=== PATIENT | male | born 1980 | race Caucasian/White ===

== ENCOUNTER → 2018-08-07 | Outpatient (CLI) | payer OTHER ==
[~2018-08-07] MED LIST: GADOBUTROL 10 MMOL/10 ML VIAL INT ART ONE; IOHEXOL 300 MG/ML 50 ML VIAL. INT ART ONE; LIDOCAINE 1% Multi-Dose 20 ML VIAL. ID ONE
--- NOTE | 2018-08-07 14:48 | KCIC ---
EXAM: Right shoulder injection WITH Fluoroscopic guidance DATE: 08/07/2018 1:00 PM CLINICAL HISTORY: Right shoulder pain COMPARISON: None pertinent TECHNIQUE: The patient was informed of the indications and alternatives for this procedure as well as risks and benefits. No immediate contraindication identified. The patient provided informed, written consent. Laterality was confirmed by the entire team following a time out. Following initial right glenohumeral joint localization, a suitable area was sterilely prepped and draped. Local anesthesia was administered with 1% xylocaine. With intermittent fluoroscopic observation, a 22-gauge spinal needle was advanced into the right glenohumeral joint sheath/capsule with confirmation of intra-synovial position with infusion of less than 1 cc iodinated contrast. Subsequent infusion 12 mL of solution containing 10 cc saline, 5 cc lidocaine 1%, 5 cc Isovue and 0.1 cc gadolinium. Hemostasis with local pressure. Local clinical exam negative for immediate complication. Patient informed re local potential signs or symptoms that may indicate need to return to ER/Ordering physician for further evaluation. Patient informed re precautionary measures after intra-synovial injection of anesthetic. Patient expressed understanding. Performing Physicians: Dr. Jan Vazquez Blood Loss: 0 cc Pre-procedural Pain Scale: 3 Post-procedural Pain Scale: 0 Total Fluoroscopy time: 10 seconds Total spot images taken: 0 Total fluoroscopic save images: 4 IMPRESSION: Successful intra-synovial injection of gadolinium contrast pre-MRI per clinical request. Electronically signed by: Kory Vazquez MD (08/07/2018 2:45 PM) [facility]
--- NOTE | 2018-08-07 15:00 | KCIC ---
EXAM: MRI arthrogram of the right shoulder DATE: 08/07/2018 2:00 PM COMPARISON: None INDICATION: Right shoulder pain, evaluate for superior labral tear. TECHNIQUE: Multiplanar multisequence MR imaging of the right shoulder was performed following the administration of intra-articular contrast. Please see separate procedure report for full details. FINDINGS: Iatrogenic distention of the right glenohumeral joint with gadolinium contrast. Trace subacromial subdeltoid bursal fluid without gadolinium characteristics, likely bursitis. AC joint is congruent without significant degenerative change. No definite rotator cuff tear is identified. Rotator cuff muscle signal and bulk is preserved. The intra-articular long head biceps tendon is normal in signal and morphology. The extra-articular long head biceps tendon is seen within the bicipital groove, normal. There is a short segment tear of the superior labrum extending posteriorly with associated para labral cyst measuring approximately 2.3 x 0.8 x 2 cm arising from the superior labrum. This tear appears to extend to the 10:00 position. Bone marrow signal is normal. Negative findings of AVN or fracture. Survey of articular cartilage within normal limits. IMPRESSION: 1. SLAP tear extending from the biceps tendon anchor to approximately 10:00 position with associated para labral cyst measuring approximately 2.3 cm in size extending toward the suprascapular and spinoglenoid notch. 2. No definite rotator cuff tear or atrophy of the muscle bellies. Electronically signed by: Kory Vazquez MD (08/07/2018 2:56 PM) [facility]
== END | disposition home or self-care (01) ==
LOC: KCIC 13:12
PROVIDERS: ATTEND Orthopaedic Surgery
DX: S43.431A Superior glenoid labrum lesion of right shoulder, initial encounter (principal); X58.XXXA Exposure to other specified factors, initial encounter; Y93.89 Activity, other specified; Y92.89 Other specified places as the place of occurrence of the external cause; Y99.8 Other external cause status
CPT/HCPCS: 73040; 73222; A9585; Q9967

== ENCOUNTER 2018-09-05 07:02 | Day surgery (SDC) | payer OTHER ==
[~2018-09-05] VITALS: Ht 180.3 cm; Wt 77.1 kg
[~2018-09-05 07:02] MED LIST changes: +CLINDAMYCIN 900MG PREMIX 50 ML IV PRN; +EPINEPHrine VIAL 30 MG/30 ML VIAL ONE; -GADOBUTROL 10 MMOL/10 ML VIAL INT ART ONE; +HYDR-963 PO; +HYDROmorphone 2 MG/ML VIAL IV PRN; +IBUP-1007 PO; -IOHEXOL 300 MG/ML 50 ML VIAL. INT ART ONE; +IV RINGERS,LACTATED 1000ML 1,000 ML IV SCH; -LIDOCAINE 1% Multi-Dose 20 ML VIAL. ID ONE; +LIDOCAINE 1% PF 2 ML VIAL. ID PRN; +MORPHINE SULFATE 2 MG/ML VIAL. IV PRN; +ONDANSETRON PF 4 MG/2 ML VIAL. IV PRN; +PROCHLORPERAZINE 10 MG/2 ML VIAL. IV PRN; +fentaNYL PF VIAL 100 MCG/2 ML VIAL IV PRN
[2018-09-05] MEDS ORDERED: ROPIVacaine 0.5% PF 20 ML VIAL. ONE (07:52)
[2018-09-05] MEDS ORDERED: DEXAMETHASONE SOD PHOS 20 MG/5 ML VIAL. ONE (08:24)
[2018-09-05] MEDS ORDERED: ROCURONIUM 50 MG/5 ML VIAL. ONE (08:24)
[2018-09-05] MEDS ORDERED: FAMOTIDINE 20 MG/2 ML VIAL ONE (08:24)
[2018-09-05] MEDS ORDERED: ONDANSETRON PF 4 MG/2 ML VIAL. ONE (08:24)
[2018-09-05] MEDS ORDERED: LIDOCAINE 2% PF Vial for OR 5 ML VIAL. ONE (08:24)
[2018-09-05] MEDS ORDERED: PROPOFOL 20 ML IV ONE (08:24)
[2018-09-05] MEDS ORDERED: fentaNYL PF VIAL 100 MCG/2 ML VIAL ONE (08:25)
[2018-09-05] MEDS ORDERED: MIDAZOLAM HCL/PF 2 MG/2 ML VIAL. ONE (08:25)
[2018-09-05] MEDS ORDERED: SEVOFLURANE 61 TO 120 MINUTES. IH ONE (10:39)
--- NOTE | 2018-09-05 10:48 | DISCH ---
DISCHARGE INSTRUCTIONS Condition on Discharge Condition on Discharge: Stable Activity After Discharge Activity Instructions for Disc: Other, see below Other activity instructions: wear sling for comfort may take arm out as needed Lifting Instructions after Dis: No heavy lifting (limit any resisted lifting right arm to 5 pounds maximum for at least 6 weeks after surgery), No pulling or pushing Diet after Discharge Diet after Discharge: Regular Wound Incision Care Wound/Incision Care: Ice to area for comfort, Change dressing (May remove dressing in 2 days may then shower) Community/Resources/Services Services at Discharge: PT EVALUATE & TREAT (May start physical therapy RAUL for active and passive range of motion advancing to strengthening as tolerated, 5 pound elbow flexion limit) Contacting the DR. after DC Call your doctor for: Concerns you may have Follow-Up Follow up with: Fouzia 10 days AL YADAV MD Sep 05, 2018 10:48
[2018-09-05] MEDS ORDERED: OXYC-327 PO (10:49)
--- NOTE | 2018-09-05 11:01 | PDOC4 ---
Operative Note Operative Note Date of surgery: 09/05/2018 Preoperative diagnosis: Type II SLAP tear and extensive labral fraying with labral cyst Postoperative diagnosis: Extensive superior and posterior labral tearing and involvement with some concern of biceps instability, intact subscapularis Operative procedure: Extensive labral debridement posteriorly and inferiorly as well as anteriorly and biceps tenodesis Surgeon: Fouzia Assist: Claudia Anesthesia: Gen. plus scalene block Estimated blood loss: 10 mL Complications: None Operative indications:Adelfo is a 38-year-old male with severe right shoulder pain and weakness status post an injury. Physical examination noted significant biceps irritation signs and MRI showed a type II SLAP tear with significant labral fraying and the labral cyst. I had gone over with him possible nonoperative treatment options of rehabilitation and strengthening the structures around the shoulder. He has been really unable to do that due to the limiting pain he is experiencing. We talked about the possibility of evaluation arthroscopically possible SLAP repair versus biceps tenodesis and dressing any other pathologic findings. I talked about the possible restrictions and rationale for protection the long recovery process expected rehabilitation risks of possible continued pain infection nerve or blood vessel damage nonhealing medical or other anesthetic consultations among others. All his questions were answered consent was obtained and he agrees to proceed with operative evaluation and treatment Operative text: Patient was identified procedure verified patient placed in the supine position on the operating table. After adequate amounts of general anesthesia plus a pre-existing scalene block were obtained he was placed in the decubitus position right side up all bony prominences were well-padded and the right shoulder was examined under anesthesia. He was found to have full range of motion no instability present he was then prepped and draped in standard sterile fashion placed in the arthroscopic arm preston with a total of 10 pounds of traction. After timeout was performed patient procedure identified and verified a standard posterior portal was established an anterior portal established in the shoulder was systematically examined. Glenohumeral joint cartilage was noted be well preserved the subscapularis tendon was noted to be intact he had very severe labral fraying posteriorly essentially from the 12 o' clock position down to about the 6 o'clock position inferiorly he had some superior labral fraying anteriorly as well which was debrided back to stable tissue around the 1:00 to 3:00 area biceps anchor itself was not grossly pulled away however I suspected based on the angle of the biceps some subluxation issues present although there was no compromise of the subscapularis tendon or the supraspinatus or infraspinatus insertion and he had a normal bare area of the humerus capsule ligament structures otherwise appeared normal. After extensive debridement back to stable tissue of the posterior inferior and anterior labrum the biceps tendon was tagged and tenotomized with the bipolar electrocautery. Dang D since was then carried out at the superior aspect of the groove after appropriate tensioning using a Gnodal absorbable anchor after drilling a 7 mm hole corresponding to the biceps size and an 8 mm interference screw which achieved excellent bite and appropriate tensioning of the biceps tendon. Arthroscope was withdrawn joint was drained of arthroscopic fluid portals were closed with subcutaneous Vicryl and subcuticular Monocryl sterile dressings were applied using extubated transferred to postop holding in stable condition having tolerated the procedure well given a regular sling for comfort and postoperative instructions to limit any lifting or resisted elbow flexion to 5 pounds for at least 6 weeks postoperatively AL YADAV MD Sep 05, 2018 11:01
[2018-09-05] MEDS ORDERED: IBUPROFEN 200 MG TABLET. PO ONE (11:15)
[2018-09-05 11:38] VITALS: BP 106/73
[2018-09-05] MEDS ORDERED: oxyCODONE/APAP 7.5/325 1 TAB TABLET PO ONE (12:00)
[2018-09-05] MEDS ORDERED: oxyCODONE/APAP 7.5/325 1 TAB TABLET ONE (12:01)
== END 2018-09-05 12:30 | disposition home or self-care (01) ==
LOC: SURG 07:02
PROVIDERS: ATTEND Orthopaedic Surgery
DX: S43.431A Superior glenoid labrum lesion of right shoulder, initial encounter (principal); X58.XXXA Exposure to other specified factors, initial encounter; Y93.89 Activity, other specified; Y92.89 Other specified places as the place of occurrence of the external cause; Y99.8 Other external cause status; F41.9 Anxiety disorder, unspecified; F17.210 Nicotine dependence, cigarettes, uncomplicated; Z72.89 Other problems related to lifestyle; Z79.1 Long term (current) use of non-steroidal anti-inflammatories (NSAID); Z79.899 Other long term (current) drug therapy
CPT/HCPCS: 29822; 29828; J0171; J1100; J2001; J2250; J2405; J2704; J2795; J3010; J3490; A7015; C1713; J7120

== ENCOUNTER 2018-11-19 11:27 | Emergency (ER) | payer OTHER ==
[~2018-11-19] VITALS: Ht 180.3 cm; Wt 77.1 kg
[~2018-11-19 11:27] MED LIST changes: -CLINDAMYCIN 900MG PREMIX 50 ML IV PRN; -EPINEPHrine VIAL 30 MG/30 ML VIAL ONE; +HYDR-3135 PO; -HYDR-963 PO; -HYDROmorphone 2 MG/ML VIAL IV PRN; -IV RINGERS,LACTATED 1000ML 1,000 ML IV SCH; -LIDOCAINE 1% PF 2 ML VIAL. ID PRN; -MORPHINE SULFATE 2 MG/ML VIAL. IV PRN; -ONDANSETRON PF 4 MG/2 ML VIAL. IV PRN; +OXYC1TAB19 PO; -PROCHLORPERAZINE 10 MG/2 ML VIAL. IV PRN; -fentaNYL PF VIAL 100 MCG/2 ML VIAL IV PRN
[2018-11-19 12:00] VITALS: BP 145/73
--- NOTE | 2018-11-19 12:50 | PHYS DOC ---
Past Medical History Past Medical History: No Pertinent History Additional Past Surgical Histo: R SHOULDER Alcohol Use: Rarely Drug Use: Marijuana Adult General Chief Complaint Chief Complaint: EARACHE/EAR PAIN HPI HPI Patient is a 38 year old male who presents with dry cough, nasal congestion, and fatigue x 2 weeks. In addition, this morning he developed left ear pain since 0200. He denies any drainage or bleeding, reports that he has decreased hearing in his left ear with the onset of sx. Pt denies any fever, sore throat, nausea, vomiting, or diarrhea. Currently he rates his pain and 8/10 on the pain scale. Review of Systems Review of Systems Constitutional: Denies fever or chills [] Eyes: Denies redness, or eye pain [] HENT: See HPI[] Respiratory: See HPI Cardiovascular: No additional information not addressed in HPI [] GI: Denies abdominal pain, nausea, vomiting, or diarrhea [] Musculoskeletal: Denies back pain or joint pain [] Integument: Denies rash or skin lesions [] Neurologic: Denies headache, focal weakness or sensory changes [] All other systems were reviewed and found to be within normal limits, except as documented in this note. Allergies Allergies Allergies Coded Allergies Type Severity Reaction Last Updated Verified Penicillins Allergy Intermediate RASH, MOUTH SWELLING 09/05/18 Yes Physical Exam Physical Exam Constitutional: Well developed, well nourished, no acute distress, non-toxic appearance. [] HENT: Normocephalic, atraumatic, bilateral external ears normal, L TM bulging with erythema no perforation, R TM moderate fluid no erythema or perforation, oropharynx moist, no oral exudates, nose normal. [] Eyes: conjunctiva normal, no discharge. [] Neck: Normal range of motion, no tenderness, supple, no stridor. [] Cardiovascular:Heart rate regular rhythm, no murmur [] Lungs & Thorax: Bilateral breath sounds clear to auscultation [] Skin: Warm, dry, no erythema, no rash. [] Neurologic: Alert and oriented X 3, normal motor function, normal sensory function, no focal deficits noted. [] Psychologic: Affect normal, judgement normal, mood normal. [] Current Patient Data Vital Signs Vital Signs Date Time Temp Pulse Resp B/P (MAP) Pulse Ox O2 Delivery O2 Flow Rate FiO2 11/19/18 12:00 98.1 78 18 145/73 (97) 99 Room Air 98.1 EKG EKG [] Radiology/Procedures Radiology/Procedures [] Course & Med Decision Making Course & Med Decision Making Pertinent Labs and Imaging studies reviewed. (See chart for details) [] Dragon Disclaimer Dragon Disclaimer This electronic medical record was generated, in whole or in part, using a voice recognition dictation system. Departure Departure Impression: Primary Impression: Acute suppur left otitis media w/o spontan rupture tympanic membrane Additional Impression: URI (upper respiratory infection) Disposition: HOME, SELF-CARE Condition: STABLE Referrals: UZAIR FLORES MD (PCP) Patient Instructions: Otitis Media, Adult, Upper Respiratory Infection, Adult, [id number] Additional Instructions: Fill prescription(s) and use as directed. Cool mist humidifier in room at bedtime. Tylenol or ibuprofen prn pain/fever. Increase clear fluids. Avoid triggers such as smoke, fragrance, dust, and pollen. May take OTC cough suppressants as needed. Follow-up with your primary care doctor in 1-2 days, return to the ER if symptoms worsen. Scripts Azithromycin (ZITHROMAX) 250 Mg Tablet 1 PKG PO UD, #6 TAB 0 Refills Prov: TIARRA BRISENO [employer] 11/19/18 Problem Qualifiers Primary Impression: Acute suppur left otitis media w/o spontan rupture tympanic membrane Recurrence: not specified as recurrent Qualified Codes: H66.002 - Acute suppurative otitis media without spontaneous rupture of ear drum, left ear Additional Impression: URI (upper respiratory infection) URI type: unspecified URI Qualified Codes: J06.9 - Acute upper respiratory infection, unspecified TIARRA BRISENO [employer] Nov 19, 2018 12:50
[2018-11-19] MEDS ORDERED: AZIT250T PO (12:55)
== END 2018-11-19 12:57 | disposition home or self-care (01) ==
LOC: ER 11:27
DX: H66.002 Acute suppurative otitis media without spontaneous rupture of ear drum, left ear (principal); J06.9 Acute upper respiratory infection, unspecified; Z88.0 Allergy status to penicillin
CPT/HCPCS: 99283

== ENCOUNTER → 2018-12-25 | Outpatient (CLI) | payer OTHER ==
[~2018-12-25] MED LIST changes: +AZIT250T PO; +GADOBUTROL 7.5 MMOL/7.5 ML VIAL INT ART ONE; +IOHEXOL 300 MG/ML 50 ML VIAL. INT ART ONE; +LIDOCAINE 1% Multi-Dose 20 ML VIAL. ID ONE
--- NOTE | 2018-12-25 14:38 | KCIC ---
MRI arthrogram of the left shoulder HISTORY: Left shoulder pain with movement for 2 or 3 months after injury. TECHNIQUE: Intra-articular contrast is administered. Standard 4 plane sequences obtained FINDINGS: Acromioclavicular joint intact. No evidence of a rotator cuff tear. Trace subdeltoid bursal fluid without contrast accumulation. No articular cartilage defect identified. There is a tear of the posterosuperior labrum. Biceps tendon is intact. No bone lesion or acute fracture. No acute soft tissue abnormality. IMPRESSION: 1. There is a small posterosuperior labral tear. 2. No evidence of rotator cuff tear. Electronically signed by: Cristian Meneses MD (12/25/2018 2:33 PM) [facility]
--- NOTE | 2018-12-25 15:13 | KCIC ---
PROCEDURE: Left shoulder injection using fluoroscopic guidance, prior to MR. HISTORY: Shoulder pain. TECHNIQUE: The procedure was explained to the patient as were potential risks, including among others infection, bleeding or allergic reaction. All questions were answered. Informed written and verbal consent was obtained. The shoulder was prepped and draped in the usual sterile manner. Following administration of local anesthetic, a 22-gauge needle was advanced into the anterior shoulder. Following negative aspiration, 12 cc of a solution of 5cc Omnipaque-300 contrast, 5 cc 1% lidocaine, 10 cc normal saline, and 0.1 cc gadolinium was injected without difficulty. The needle was removed. There was good hemostasis at the injection site. The patient left in stable condition without immediate complication. A single spot image is obtained. FLUOROSCOPY TIME:?19 seconds Electronically signed by: Cristian Meneses MD (12/25/2018 3:08 PM) [facility]
== END | disposition home or self-care (01) ==
LOC: KCIC 12-22 12:12
PROVIDERS: ATTEND Orthopaedic Surgery
DX: S43.492A Other sprain of left shoulder joint, initial encounter (principal); F17.210 Nicotine dependence, cigarettes, uncomplicated; X58.XXXA Exposure to other specified factors, initial encounter; Y93.89 Activity, other specified; Y92.89 Other specified places as the place of occurrence of the external cause; Y99.8 Other external cause status; Z88.0 Allergy status to penicillin; Z72.89 Other problems related to lifestyle
CPT/HCPCS: 73040; 73222; A9585; Q9967

== ENCOUNTER 2019-01-13 13:42 | Day surgery (SDC) | payer OTHER ==
[~2019-01-13] VITALS: Ht 180.3 cm; Wt 74.8 kg
[~2019-01-13 13:42] MED LIST changes: +ALPR1TAB PO; +CLINDAMYCIN 900MG PREMIX 50 ML IV PRN; +DIVA500T2 PO; -GADOBUTROL 7.5 MMOL/7.5 ML VIAL INT ART ONE; +HYDR25TA PO; +HYDROmorphone 2 MG/ML VIAL IV PRN; +HYOS0.1265 SL; -IOHEXOL 300 MG/ML 50 ML VIAL. INT ART ONE; +IV RINGERS,LACTATED 1000ML 1,000 ML IV SCH; +LEXAPRO20 MG PO; -LIDOCAINE 1% Multi-Dose 20 ML VIAL. ID ONE; +LIDOCAINE 1% PF 2 ML VIAL. ID PRN; +MORPHINE SULFATE 4 MG/ML VIAL. IV PRN; +ONDANSETRON PF 4 MG/2 ML VIAL. IV PRN; +OPIU1SUP2 RC; +PHEN-444 PO; +PROCHLORPERAZINE 10 MG/2 ML VIAL. IV PRN; +QUET200T4 PO; +TAMS0.4C2 PO; +fentaNYL PF VIAL 100 MCG/2 ML VIAL IV PRN
[2019-01-13] MEDS: fentaNYL PF VIAL 100 MCG/2 ML VIAL IV PRN ×5 (15:58→21:29)
[2019-01-13] MEDS ORDERED: ACETAMINOPHEN 500 MG TABLET PO ONE (16:00)
[2019-01-13] MEDS ORDERED: IBUPROFEN 400 MG TABLET. PO ONE (16:00)
[2019-01-13] MEDS ORDERED: PROPOFOL 20 ML IV ONE (17:26)
[2019-01-13] MEDS ORDERED: fentaNYL PF VIAL 100 MCG/2 ML VIAL ONE (17:26)
[2019-01-13] MEDS ORDERED: LIDOCAINE 2% PF 5 ML VIAL. ONE (17:26)
[2019-01-13] MEDS ORDERED: ROCURONIUM 50 MG/5 ML VIAL. ONE (17:26)
[2019-01-13] MEDS ORDERED: ONDANSETRON PF 4 MG/2 ML VIAL. ONE (17:26)
[2019-01-13] MEDS ORDERED: DEXAMETHASONE SOD PHOS 20 MG/5 ML VIAL. ONE (17:26)
[2019-01-13] MEDS ORDERED: GLYCOPYRROLATE 1 MG/5 ML VIAL. ONE (17:26)
[2019-01-13] MEDS ORDERED: MIDAZOLAM HCL/PF 2 MG/2 ML VIAL. ONE (18:20)
[2019-01-13] MEDS ORDERED: BUPIVACAINE MPF 0.25% 10 ML VIAL. ONE (18:20)
[2019-01-13] MEDS ORDERED: EPINEPHrine 1 MG/ML VIAL ONE (18:20)
[2019-01-13] MEDS ORDERED: BUPIVACAINE MPF 0.5% 30 ML VIAL. ONE (18:20)
[2019-01-13] MEDS ORDERED: LIDOCAINE 1% PF 2 ML VIAL. ONE (18:21)
[2019-01-13] MEDS ORDERED: CLINDAMYCIN PREMIX 900 MG/50 ML BAG IV ONE (19:09)
[2019-01-13] MEDS ORDERED: EPINEPHrine VIAL 30 MG/30 ML VIAL ONE (19:14)
[2019-01-13] MEDS ORDERED: SEVOFLURANE 61 TO 120 MINUTES. IH ONE (19:41)
[2019-01-13] MEDS ORDERED: CLINDAMYCIN 900MG PREMIX 50 ML IV ONE (19:45)
--- NOTE | 2019-01-13 20:36 | DISCH ---
DISCHARGE INSTRUCTIONS Condition on Discharge Condition on Discharge: Stable (immediate passive and active range of motion to left shoulder, recommend gentle stretching to avoid stiffness) Activity After Discharge Activity Instructions for Disc: Other, see below Lifting Instructions after Dis: No heavy lifting, No pulling or pushing Weight Bearing Status after Di: As tolerated Diet after Discharge Diet after Discharge: Regular Wound Incision Care Wound/Incision Care: Ice to area for comfort, Change dressing (May remove dressing in 2 days may then shower no soaking until sutures removed) Contacting the DR. after DC Call your doctor for: Concerns you may have Follow-Up Follow up with: Fouzia 1 week AL YADAV MD Jan 13, 2019 20:36
[2019-01-13] MEDS ORDERED: OXYC1TAB19 PO (20:40)
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
[2019-01-13] MEDS ORDERED: oxyCODONE/APAP 7.5/325 1 TAB TABLET PO PRN (21:30)
[2019-01-13 22:10] VITALS: BP 124/87
== END 2019-01-13 22:34 | disposition home or self-care (01) ==
LOC: SURG 13:42
PROVIDERS: ATTEND Orthopaedic Surgery
DX: S46.012A Strain of muscle(s) and tendon(s) of the rotator cuff of left shoulder, initial encounter (principal); M75.52 Bursitis of left shoulder; M75.42 Impingement syndrome of left shoulder; Z88.0 Allergy status to penicillin; Z88.5 Allergy status to narcotic agent; F43.10 Post-traumatic stress disorder, unspecified; F31.9 Bipolar disorder, unspecified; Z98.890 Other specified postprocedural states; F17.210 Nicotine dependence, cigarettes, uncomplicated; Z79.899 Other long term (current) drug therapy; X58.XXXA Exposure to other specified factors, initial encounter; Y93.89 Activity, other specified; Y92.89 Other specified places as the place of occurrence of the external cause; Y99.8 Other external cause status
CPT/HCPCS: 29822; 29824; A7015; J0171; J1100; J2001; J2250; J2405; J2704; J3010; J3490; J7120

== ENCOUNTER 2019-02-11 23:03 | Emergency (ER) | payer OTHER ==
[~2019-02-11] VITALS: Ht 180.3 cm; Wt 74.8 kg
[~2019-02-11 23:03] MED LIST changes: -CLINDAMYCIN 900MG PREMIX 50 ML IV PRN; -HYDROmorphone 2 MG/ML VIAL IV PRN; -IV RINGERS,LACTATED 1000ML 1,000 ML IV SCH; -LIDOCAINE 1% PF 2 ML VIAL. ID PRN; -MORPHINE SULFATE 4 MG/ML VIAL. IV PRN; -ONDANSETRON PF 4 MG/2 ML VIAL. IV PRN; -PROCHLORPERAZINE 10 MG/2 ML VIAL. IV PRN; -fentaNYL PF VIAL 100 MCG/2 ML VIAL IV PRN
[2019-02-11 23:25] VITALS: BP 105/68
[2019-02-12] MEDS ORDERED: oxyCODONE/APAP 5/325 1 TAB TABLET PO ONE
[2019-02-12] MEDS ORDERED: tiZANidine 4 MG TABLET. PO ONE
--- NOTE | 2019-02-12 00:08 | PHYS DOC ---
Past Medical History Past Medical History: No Pertinent History (GUERA MILLER APRN) Additional Past Surgical Histo: R SHOULDER, Left shoulder approx 1-1.5months ago (GUERA MILLER APRN) Alcohol Use: None Drug Use: None (GUERA MILLER APRN) Adult General Chief Complaint Chief Complaint: SHOULDER INJURY [facility] HPI Patient is a 38 year old male who presents with sister 2 months ago from his shoulder stating his clavicle was touching his rotator cuff any need repair. Surgery was done by Dr. Fragoso. Patient states today he was going up the stairs to grab a cup for his child when he the stairs and fell on the left shoulder. Patient states it's tender and pops when he moves it. Patient rates his pain 8 out of 10. He states he cannot drive and he did not take any pain medication except for ibuprofen earlier today. (GUERA MILLER APRN) Review of Systems Review of Systems Constitutional: Denies fever or chills [] Eyes: Denies change in visual acuity, redness, or eye pain [] HENT: Denies nasal congestion or sore throat [] Respiratory: Denies cough or shortness of breath [] Cardiovascular: No additional information not addressed in HPI [] GI: Denies abdominal pain, nausea, vomiting, bloody stools or diarrhea [] : Denies dysuria or hematuria [] Musculoskeletal: Denies back pain. Left shoulder joint pain [] Integument: Denies rash or skin lesions [] Neurologic: Denies headache, focal weakness or sensory changes [] All other systems were reviewed and found to be within normal limits, except as documented in this note. (GUERA MILLER APRN) Current Medications Current Medications Current Medications Medications (Trade) Dose Ordered Sig/Ju Start Time Stop Time Status Last Admin Dose Admin Oxycodone/ Acetaminophen (Percocet 5/325) 1 tab 1X ONCE 02/12/19 00:00 02/12/19 00:01 DC 02/12/19 00:21 1 TAB Tizanidine HCl (Zanaflex) 4 mg 1X ONCE 02/12/19 00:00 02/12/19 00:01 DC 02/12/19 00:21 4 MG (RODRIGO BAILON DO) Allergies Allergies Allergies Coded Allergies Type Severity Reaction Last Updated Verified Penicillins Allergy Intermediate RASH, MOUTH SWELLING 01/08/19 Yes hydrocodone Allergy Unknown ITCHING ALL OVER,JUST HAPPENED (NEW RX) Yes (RODRIGO BAILON DO) Physical Exam Physical Exam Constitutional: Well developed, well nourished, no acute distress, non-toxic appearance. [] HENT: Normocephalic, atraumatic, bilateral external ears normal, oropharynx moist, no oral exudates, nose normal. [] Eyes: PERRLA, EOMI, conjunctiva normal, no discharge. [] Neck: Normal range of motion, no tenderness, supple, no stridor. [] Cardiovascular:Heart rate regular rhythm, no murmur [] Lungs & Thorax: Bilateral breath sounds clear to auscultation [] Abdomen: Bowel sounds normal, soft, no tenderness, no masses, no pulsatile masses. [] Skin: Warm, dry, no erythema, no rash. [] Back: No tenderness, no CVA tenderness. [] Extremities: Left anterior shoulder tenderness, no cyanosis, no clubbing, ROM intact but limited due to pain, no edema. [] Neurologic: Alert and oriented X 3, normal motor function, normal sensory function, no focal deficits noted. [] Psychologic: Affect normal, judgement normal, mood normal. [] (GUERA MILLER APRN) Current Patient Data Vital Signs Vital Signs Date Time Temp Pulse Resp B/P (MAP) Pulse Ox O2 Delivery O2 Flow Rate FiO2 02/11/19 23:25 98.0 117 17 105/68 (80) 96 Room Air 98.0 (RODRIGO BAILON DO) EKG EKG [] (GUERA MILLER APRN) Radiology/Procedures Radiology/Procedures [] (GUERA MILLER APRN) Radiology/Procedures PROCEDURE: SHOULDER 2+V LEFT Three-view left shoulder radiographs 02/12/2019 CLINICAL HISTORY: Postoperative injury to the left shoulder. AP internal and external rotation and transscapular digital radiographs of the left shoulder were obtained. The patient is post resection of the distal left clavicle at the level of the left AC joint. No fracture or dislocation of the left shoulder is seen. IMPRESSION: Postsurgical changes are seen involving the left AC joint as outlined above. No acute osseous abnormality is seen. Electronically signed by: Wilmer Olson MD (02/12/2019 3:35 AM) [facility] (RODRIGO BAILON DO) Course & Med Decision Making Course & Med Decision Making Patient is a 38 year old male who presents with sister 2 months ago from his shoulder stating his clavicle was touching his rotator cuff any need repair. Surgery was done by Dr. Fragoso. Patient states today he was going up the stairs to grab a cup for his child when he the stairs and fell on the left shoulder. Patient states it's tender and pops when he moves it. Patient rates his pain 8 out of 10. He states he cannot drive and he did not take any pain medication except for ibuprofen earlier today. Alert and oriented. Impetigo with a steady gait. When examining the left shoulder there is no deformity and range of motion is limited due to pain but he states he does not feel pain until the shoulder is at shoulder height in every direction. Range of motion is limited therefore due to pain. Tenderness to anterior shoulder. There is no laxity in the joint. Radial pulses present and strong. Cap refill less than 3 seconds. Skin pink warm and dry. Patient is given Barnum and a muscle relaxer in the ED. Xray read by Dr Bailon and besides surgical changes( Left shoulder arthroscopy distal clavicle excision debridement of a partial-thickness rotator cuff tear of the supraspinatus and subacromial decompression) there are no obvious abnormalities. (GUERA MILLER APRN) Dragon Disclaimer Dragon Disclaimer This electronic medical record was generated, in whole or in part, using a voice recognition dictation system. (GUERA MILLER APRN) Departure Departure Impression: Primary Impression: Shoulder contusion Disposition: 01 HOME, SELF-CARE Condition: STABLE Referrals: UZAIR FLORES MD (PCP) Patient Instructions: Contusion Additional Instructions: Call Dr. Fragoso in the morning. 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 Take medication as prescribed. Scripts Orphenadrine Citrate (ORPHENADRINE CITRATE) 100 Mg Tablet.er 1 TAB PO BID, #14 TAB Prov: GUERA MILLER APRN 02/12/19 Oxycodone/Apap 5-325 (PERCOCET 5-325 MG TABLET ) 1 Each Tablet 1 TAB PO PRN Q6HRS PRN for PAIN, #8 TAB 0 Refills Prov: GUERA MILLER LINING STAMPER 02/12/19 Attending Signature Attending Signature I have reviewed the PA/WAITER/WAITRESS ROOM SERVICE's note and plan of care. I was available for consultation as needed during the patient's visit in the emergency department. I agree with the clinical impression, plan, and disposition. (RODRIGO BAILON DO) Problem Qualifiers Primary Impression: Shoulder contusion Encounter type: initial encounter Laterality: left Qualified Codes: S40.012A - Contusion of left shoulder, initial encounter GUERA MILLER LINING STAMPER Feb 12, 2019 00:08 RODRIGO BAILON DO Feb 25, 2019 06:09
[2019-02-12] MEDS ORDERED: OXYC1TAB15 PO (01:11)
[2019-02-12] MEDS ORDERED: ORPH100T PO (01:11)
--- NOTE | 2019-02-12 03:38 | RAD ---
Three-view left shoulder radiographs 02/12/2019 CLINICAL HISTORY: Postoperative injury to the left shoulder. AP internal and external rotation and transscapular digital radiographs of the left shoulder were obtained. The patient is post resection of the distal left clavicle at the level of the left AC joint. No fracture or dislocation of the left shoulder is seen. IMPRESSION: Postsurgical changes are seen involving the left AC joint as outlined above. No acute osseous abnormality is seen. Electronically signed by: Wilmer Olson MD (02/12/2019 3:35 AM) [facility]
== END 2019-02-12 01:17 | disposition home or self-care (01) ==
LOC: ER 23:03
DX: S40.012A Contusion of left shoulder, initial encounter (principal); Z88.0 Allergy status to penicillin; Z88.5 Allergy status to narcotic agent; W10.8XXA Fall (on) (from) other stairs and steps, initial encounter; Y93.89 Activity, other specified; Y92.89 Other specified places as the place of occurrence of the external cause; Y99.8 Other external cause status
CPT/HCPCS: 73030; 99284

== ENCOUNTER → 2019-04-20 | Outpatient (CLI) | payer OTHER ==
[~2019-04-20] MED LIST changes: +ORPH100T PO; +OXYC1TAB15 PO
--- NOTE | 2019-04-21 09:01 | KCIC ---
MR of the left shoulder HISTORY: Left shoulder pain after surgery last December. TECHNIQUE: Routine multiplanar sequences are obtained. COMPARISON: MRI arthrogram December 25, 2018. FINDINGS: Postsurgical changes now identified with acromioplasty and outer clavicle resection. Mild fluid in the operative bed. No evidence of rotator cuff tear. Mild subdeltoid bursal fluid. No significant joint effusion. No acute articular cartilage defect. No evidence of labral tear or para labral cyst. The biceps tendon is intact. No bone destruction. No acute fracture. No acute soft tissue abnormality. IMPRESSION: 1. Postsurgical changes at the acromioclavicular joint. 2. Previously seen labral tear not visualized. This may be due to decreased sensitivity on today's nonarthrographic exam, or interval repair. Electronically signed by: Cristian Meneses MD (04/21/2019 8:58 AM) [facility]
== END | disposition home or self-care (01) ==
LOC: KCIC MRI 17:12
PROVIDERS: ATTEND Orthopaedic Surgery
DX: Z47.89 Encounter for other orthopedic aftercare (principal)
CPT/HCPCS: 73221

== ENCOUNTER 2020-08-02 08:51 | Emergency (ER) | payer MEDICAID, OTHER ==
[~2020-08-02] VITALS: Ht 180.3 cm; Wt 79.5 kg
[2020-08-02 09:04] VITALS: BP 128/78
[2020-08-02] MEDS ORDERED: CLIN300C8 PO (09:28)
[2020-08-02] MEDS ORDERED: ACET1TAB33 PO (09:28)
--- NOTE | 2020-08-02 09:28 | PHYS DOC ---
Past Medical History Past Medical History: No Pertinent History Past Surgical History: Other Additional Past Surgical Histo: R SHOULDER, Left shoulder approx 1-1.5months ago Smoking Status: Current Every Day Smoker Alcohol Use: Rarely Drug Use: None General Adult EDM: Chief Complaint: DENTAL PROBLEM HPI: HPI: Patient is a 40 year old male who presents with a chief complaint of dental pain for the last 2 days. Patient states he is having left maxilla dental pain that radiates to the left mandible. Patient denies any fever. Patient states the pain is moderate at rest but severe with eating. Pain is throbbing. Patient denies any fevers cough or shortness of breath. Review of Systems: Review of Systems: Constitutional: Denies fever or chills. [] Eyes: Denies change in visual acuity. [] HENT: Complains of dental pain Respiratory: Denies cough or shortness of breath. [] Cardiovascular: Denies chest pain or edema. [] GI: Denies abdominal pain, nausea, vomiting, bloody stools or diarrhea. [] : Denies dysuria. [] Musculoskeletal: Denies back pain or joint pain. [] Integument: Denies rash. [] Neurologic: Denies headache, focal weakness or sensory changes. [] Endocrine: Denies polyuria or polydipsia. [] Lymphatic: Denies swollen glands. [] Psychiatric: Denies depression or anxiety. [] Heart Score: Risk Factors: Risk Factors: DM, Current or recent (<one month) smoker, HTN, HLP, family history of CAD, obesity. Risk Scores: Score 0 - 3: 2.5% MACE over next 6 weeks - Discharge Home Score 4 - 6: 20.3% MACE over next 6 weeks - Admit for Clinical Observation Score 7 - 10: 72.7% MACE over next 6 weeks - Early Invasive Strategies Allergies: Allergies: Allergies Coded Allergies Type Severity Reaction Last Updated Verified Penicillins Allergy Intermediate RASH, MOUTH SWELLING 01/08/19 Yes hydrocodone Allergy Unknown ITCHING ALL OVER,JUST HAPPENED (NEW RX) Yes Physical Exam: PE: Constitutional: Well developed, well nourished, no acute distress, non-toxic appearance. [] HENT: Normocephalic, atraumatic, bilateral external ears normal, widespread dental decay without drainable abscess, the floor of mouth is soft, no Jamshid angina, mild gingival swelling on the left maxillary premolar area Eyes: PERRLA, EOMI, conjunctiva normal, no discharge. [] Neck: Normal range of motion, no tenderness, supple, no stridor. [] Cardiovascular:Heart rate regular rhythm, peripheral pulses intact, cap refill brisk Lungs & Thorax: Bilateral breath sounds clear no respiratory distress Abdomen: Abdomen soft nondistended Skin: Warm, dry, no erythema, no rash. [] Back: No tenderness, no CVA tenderness. [] Extremities: No tenderness, no cyanosis, no clubbing, ROM intact, no edema. [] Neurologic: Alert and oriented X 3, normal motor function, normal sensory function, no focal deficits noted. [] Psychologic: Affect normal, judgement normal, mood normal. [] Current Patient Data: Vital Signs: Vital Signs Date Time Temp Pulse Resp B/P (MAP) Pulse Ox O2 Delivery O2 Flow Rate FiO2 08/02/20 09:04 97.5 111 14 128/78 (95) 97 Room Air 97.5 EKG: EKG: [] Radiology/Procedures: Radiology/Procedures: [] Course & Med Decision Making: Course & Med Decision Making Pertinent Labs and Imaging studies reviewed. (See chart for details) [] 40-year-old male with dental pain and cavities. Patient was placed on antibiotics. No drainable abscess. Dental referral. Castillo Disclaimer: Castillo Disclaimer: This electronic medical record was generated, in whole or in part, using a voice recognition dictation system. Departure Departure Impression: Primary Impression: Pain, dental Additional Impression: Pain due to dental caries Disposition: 01 HOME, SELF-CARE Condition: STABLE Referrals: UZAIR FLORES MD (PCP) dentist Patient Instructions: Clindamycin capsules, Dental Caries Additional Instructions: EMERGENCY DEPARTMENT GENERAL DISCHARGE INSTRUCTIONS THANK YOU for coming to [facility] Emergency Department (ED) today and trusting us with your care. We trust that you had a positive experience in our Emergency Department. If you wish to speak to the department Management you can contact the preparation department supervisor at . YOUR FOLLOW UP INSTRUCTIONS ARE FOLLOWS: Do you have a private doctor? If you do not have a private doctor, please ask for a resource list of physicians or clinics that may be able to assist you with follow up care. The Emergency Physician has interpreted your x-rays. The X-ray specialist will also review them. If there is a change in the findings you will be notified in 48 hours when at all possible. A lab test or lab culture may have been done, your results will be reviewed and you will be notified if you need a change in treatment. ADDITIONAL INSTRUCTIONS AND INFORMATION Your care today has been supervised by a physician who is specially trained in emergency care. Many problems require more than one evaluation for a complete diagnosis and treatment. We recommend that you schedule your follow up appointment as recommended to e nsure complete treatment of your illness or injury. If you are unable to obtain follow up care and continue to have a problem, or if your condition worsens we recommend that you return to the ED. We are not able to safely determine your condition over the phone nor are we able to give sound medical advice over the phone. For these safety reasons, if you call for medical advice we will ask you to come to the ED for further evaluation If you have any questions regarding these discharge instructions please call the ED at . SAFETY INFORMATION In the interest of safety, wellness, and injury prevention; we encourage you to wear your seatbelt, if you smoke; quit smoking, and we encourage your family to use protective helmet for bicycling and other sporting events that present an increased risk for head injury. IF YOUR SYMPTOMS WORSEN OR NEW SYMPTOMS DEVELOP, OR YOU HAVE CONCERNS ABOUT YOUR CONDITION; OR IF YOUR CONDITION WORSENS WHILE YOU ARE WAITING FOR YOUR FOLLOW UP APPOINTMENT; EITHER CONTACT YOUR PRIMARY CARE DOCTOR, THE PHYSICIAN WHOSE NAME AND NUMBER YOU WERE GIVEN, OR RETURN TO THE ED IMMEDIATELY. Scripts Acetaminophen With Codeine (ACETAMINOPHEN-COD #3 TABLET) 1 Each Tablet 1 TAB PO PRN Q6HRS PRN for PAIN, #12 TAB Prov: JULIUS MOREL MD 08/02/20 Clindamycin Hcl (CLINDAMYCIN HCL) 300 Mg Capsule 1 CAP PO QID, #40 CAP Prov: JULIUS MOREL MD 08/02/20 Justicifation of Admission Dx: Justifications for Admission: Justification of Admission Dx: N/A JULIUS MOREL MD Aug 02, 2020 09:28
== END 2020-08-02 09:55 | disposition home or self-care (01) ==
LOC: ER 08:51
DX: K02.9 Dental caries, unspecified (principal); K08.89 Other specified disorders of teeth and supporting structures; R60.0 Localized edema; F17.200 Nicotine dependence, unspecified, uncomplicated; Z98.890 Other specified postprocedural states; Z88.0 Allergy status to penicillin; Z88.5 Allergy status to narcotic agent
CPT/HCPCS: 99283

== ENCOUNTER 2020-11-06 22:15 | Emergency (ER) | payer OTHER, MEDICAID ==
[~2020-11-06] VITALS: Ht 180.3 cm; Wt 79.5 kg
[2020-11-06 22:15] VITALS: BP 153/91
[~2020-11-06 22:15] MED LIST changes: +ACET1TAB33 PO; +CLIN300C9 PO
[2020-11-06] MEDS ORDERED: CLIN150C14 PO (23:01)
[2020-11-06] MEDS ORDERED: OXYC1TAB15 PO (23:01)
[2020-11-06] MEDS ORDERED: IBUP-1060 PO (23:01)
--- NOTE | 2020-11-06 23:02 | PHYS DOC ---
Past Medical History Past Medical History: No Pertinent History Past Surgical History: Other Additional Past Surgical Histo: R SHOULDER, Left shoulder approx 1-1.5months ago Smoking Status: Current Every Day Smoker Alcohol Use: Rarely Drug Use: None General Adult EDM: Chief Complaint: Toothache HPI: HPI: Patient is a 40 year old male presented with left upper dental pain. Patient said he has a cavity on his left upper first molar for while. He was eating dinner today and part of the left upper first molar broke off, having severe pain. No fever. Patient said he will see his dentist tomorrow. Review of Systems: Review of Systems: Constitutional: Denies fever or chills. [] Eyes: Denies change in visual acuity. [] HENT: Denies nasal congestion or sore throat. Positive for dental pain. Respiratory: Denies cough or shortness of breath. [] Cardiovascular: Denies chest pain or edema. [] GI: Denies abdominal pain, nausea, vomiting, bloody stools or diarrhea. [] : Denies dysuria. [] Musculoskeletal: Denies back pain or joint pain. [] Integument: Denies rash. [] Neurologic: Denies headache, focal weakness or sensory changes. [] Endocrine: Denies polyuria or polydipsia. [] Lymphatic: Denies swollen glands. [] Psychiatric: Denies depression or anxiety. [] Heart Score: Risk Factors: Risk Factors: DM, Current or recent (<one month) smoker, HTN, HLP, family history of CAD, obesity. Risk Scores: Score 0 - 3: 2.5% MACE over next 6 weeks - Discharge Home Score 4 - 6: 20.3% MACE over next 6 weeks - Admit for Clinical Observation Score 7 - 10: 72.7% MACE over next 6 weeks - Early Invasive Strategies Allergies: Allergies: Allergies Coded Allergies Type Severity Reaction Last Updated Verified Penicillins Allergy Intermediate RASH, MOUTH SWELLING 01/08/19 Yes hydrocodone Allergy Unknown ITCHING ALL OVER,JUST HAPPENED (NEW RX) 01/08/19 Yes Physical Exam: PE: Constitutional: Well developed, well nourished, no acute distress, non-toxic appearance. [] HENT: Normocephalic, atraumatic, bilateral external ears normal, oropharynx moist, no oral exudates, nose normal. Left upper 1st molar with cavity, partially broke, there is tenderness to palpation at gumline, no palpable abscess. NO trismus. Eyes: PERRLA, EOMI, conjunctiva normal, no discharge. [] Neck: Normal range of motion, no tenderness, supple, no stridor. [] Cardiovascular:Heart rate regular rhythm, no murmur [] Lungs & Thorax: Bilateral breath sounds clear to auscultation [] Abdomen: Bowel sounds normal, soft, no tenderness, no masses, no pulsatile masses. [] Skin: Warm, dry, no erythema, no rash. [] Back: No tenderness, no CVA tenderness. [] Extremities: No tenderness, no cyanosis, no clubbing, ROM intact, no edema. [] Neurologic: Alert and oriented X 3, normal motor function, normal sensory function, no focal deficits noted. [] Psychologic: Affect normal, judgement normal, mood normal. [] EKG: EKG: [] Radiology/Procedures: Radiology/Procedures: [] Course & Med Decision Making: Course & Med Decision Making Pertinent Labs and Imaging studies reviewed. (See chart for details) [] Dragon Disclaimer: Dragon Disclaimer: This electronic medical record was generated, in whole or in part, using a voice recognition dictation system. Departure Departure Impression: Primary Impression: Infected dental carries Additional Impression: Toothache Disposition: 01 DC HOME SELF CARE/HOMELESS Condition: IMPROVED Referrals: UZAIR FLORES MD (PCP) please follow up with your dentist tomorrow. Patient Instructions: Dental Caries, Dental Pain Additional Instructions: Thank you for visiting our Emergency Department. We appreciate you trusting us with your care. If any additional problems come up don't hesitate to return to visit us. Please follow up with your primary care provider so they can plan additional care if needed and know about the problem that you had. If symptoms worsen come back to the Emergency Department. Any concerning symptoms that start such as chest pain, shortness of air, weakness or numbness on one side of the body, running high fevers or any other concerning symptoms return to the ER. Scripts Ibuprofen (IBUPROFEN) 800 Mg Tablet 800 MG PO PRN Q8HRS PRN for PAIN, #30 TAB Prov: KATRINA FRENCH DO 11/06/20 Oxycodone/Apap 5-325 (PERCOCET 5-325 MG TABLET ) 1 Each Tablet 1 TAB PO QIDPRN PRN for PAIN MDD 4 Tablet(s) for 3 Days, #10 TAB 0 Refills Prov: KATRINA FRENCH DO 11/06/20 Clindamycin Hcl (CLINDAMYCIN HCL) 150 Mg Capsule 2 CAP PO QID for 7 Days, #56 CAP Prov: KATRINA FRENCH DO 11/06/20 KATRINA FRENCH DO Nov 06, 2020 23:02
[2020-11-06] MEDS ORDERED: MORPHINE SULFATE 4 MG/ML VIAL. IM ONE (23:30)
[2020-11-06] MEDS ORDERED: CLINDAMYCIN HCL 150 MG CAPSULE. PO ONE (23:30)
[2020-11-06] MEDS ORDERED: KETOROLAC 60 MG/2 ML VIAL. IM ONE (23:30)
== END 2020-11-06 23:24 | disposition home or self-care (01) ==
LOC: ER 22:15
DX: K04.7 Periapical abscess without sinus (principal); F17.200 Nicotine dependence, unspecified, uncomplicated; Z88.0 Allergy status to penicillin; Z88.5 Allergy status to narcotic agent
CPT/HCPCS: 96372; 99284; J1885; J2270

== ENCOUNTER 2021-02-23 07:56 | Emergency (ER) | payer MEDICAID, OTHER ==
[~2021-02-23] VITALS: Ht 180.3 cm; Wt 75.0 kg
[~2021-02-23 07:56] MED LIST changes: +CLIN150C15 PO; +IBUP-1060 PO
[2021-02-23 07:59] VITALS: BP 125/75
--- NOTE | 2021-02-23 08:41 | ED.ADGEN ---
Past Medical History Past Medical History: No Pertinent History Past Surgical History: Other Additional Past Surgical Histo: R SHOULDER, Left shoulder approx 1-1.5months ago Smoking Status: Current Every Day Smoker Alcohol Use: Rarely Drug Use: None General Adult EDM: Chief Complaint: RINGING IN EARS HPI: HPI: Patient is a 40 year old male coming in for left ear complaints. Patient was seen 6 days ago at a different ER prescribed sodium docusate drops 3 times daily which she states has been using. Patient said the symptoms are muffled hearing, ear pressure, occasional vertigo. Patient states that when he was seen before did not attempt to remove the cerumen impaction. Denies any congestion or rhinorrhea. Patient does state he has a history of seasonal allergies. Denies any discharge or drainage from the ear. States he otherwise has been well. Denies any headaches or vision changes Review of Systems: Review of Systems: All other systems within normal limits except for as noted in the HPI Allergies: Allergies: Allergies Coded Allergies Type Severity Reaction Last Updated Verified Penicillins Allergy Intermediate RASH, MOUTH SWELLING 01/08/19 Yes hydrocodone Allergy Intermediate ITCHING ALL OVER,JUST HAPPENED (NEW RX) 11/06/20 Yes Physical Exam: PE: Constitutional: Well developed, well nourished, no acute distress, non-toxic appearance. [] HENT: Normocephalic, atraumatic, bilateral external ears normal, right ear canal and TM unremarkable, left TM occluded by cerumen, nose normal. [] Eyes: PERRLA, conjunctiva normal, no discharge. [] Neck: No rigidity, supple, no stridor. [] Cardiovascular: Regular rate and rhythm, brisk cap refill [] Lungs & Thorax: Non labored symmetric respirations, no tachypnea or respiratory distress [] Abdomen: Soft, nondistended. Skin: Warm, dry, no erythema, no rash. [] Back: Unremarkable Extremities: No deformities, range of motion grossly intact, no lower extremity edema [] Neurologic: Alert and oriented X 3, no focal deficits noted. [] Psychologic: Affect normal, judgement normal, mood normal. [] Current Patient Data: Vital Signs: Vital Signs Date Time Temp Pulse Resp B/P (MAP) Pulse Ox O2 Delivery O2 Flow Rate FiO2 02/23/21 07:59 97.8 68 18 125/75 (92) 98 Room Air 97.8 EKG: EKG: [] Heart Score: C/O Chest Pain: N/A Risk Factors: Risk Factors: DM, Current or recent (<one month) smoker, HTN, HLP, family history of CAD, obesity. Risk Scores: Score 0 - 3: 2.5% MACE over next 6 weeks - Discharge Home Score 4 - 6: 20.3% MACE over next 6 weeks - Admit for Clinical Observation Score 7 - 10: 72.7% MACE over next 6 weeks - Early Invasive Strategies Radiology/Procedures: Radiology/Procedures: Left ear irrigated with peroxide and saline, large amount of cerumen removed. P atient states he is feeling much better and can hear out of his left ear now. Reexamination of the left ear shows clear TM without signs of infection, small amount of erythema likely due to the disimpaction. Discussed return precautions for otitis externa. [] Course & Med Decision Making: Course & Med Decision Making Pertinent Labs and Imaging studies reviewed. (See chart for details) [] Dragon Disclaimer: Dragon Disclaimer: This electronic medical record was generated, in whole or in part, using a voice recognition dictation system. Departure Departure Impression: Primary Impression: Impacted cerumen, left ear Disposition: 01 DC HOME SELF CARE/HOMELESS Condition: IMPROVED Referrals: UZAIR FLORES MD (PCP) Patient Instructions: Cerumen Impaction DARIN HICKEY MD Feb 23, 2021 08:40
== END 2021-02-23 09:42 | disposition home or self-care (01) ==
LOC: ER 07:56
DX: H61.22 Impacted cerumen, left ear (principal); R42 Dizziness and giddiness; F17.200 Nicotine dependence, unspecified, uncomplicated; Z98.890 Other specified postprocedural states; Z88.0 Allergy status to penicillin; Z88.5 Allergy status to narcotic agent
CPT/HCPCS: 99282

== ENCOUNTER 2021-04-30 01:13 | Emergency (ER) | payer MEDICAID ==
[~2021-04-30] VITALS: Ht 175.3 cm; Wt 72.7 kg
[2021-04-30 01:23] VITALS: BP 136/75
[2021-04-30] MEDS ORDERED: NEOMY/BACITR/POLYMYXIN OINT PACKET. TP ONE (01:30)
[2021-04-30] MEDS ORDERED: LIDOCAINE 1% PF 5 ML VIAL. INJ ONE (01:45)
[2021-04-30] MEDS ORDERED: NEOM28.33 TP (02:53)
[2021-04-30] MEDS ORDERED: GABA300C18 PO (02:53)
--- NOTE | 2021-04-30 02:55 | PHYS DOC ---
Past Medical History Past Medical History: No Pertinent History Past Surgical History: Other Additional Past Surgical Histo: R SHOULDER, Left shoulder approx 1-1.5months ago Smoking Status: Current Every Day Smoker Alcohol Use: Rarely Drug Use: None General Adult EDM: Chief Complaint: UPPER EXTREMITY INJURY HPI: HPI: 40-year-old male who denies any past medical history presents to the ED with complaints of right forearm laceration after he was moving a tree into a campfire. Reports he lost balance of the tree limb and it grazed his right forearm. Reports [id number] sensation over his mid right forearm extensors right fourth digit. History of prior symptoms and is asking for a nerve medication. Has cyclobenzaprine prescribed at home. Tetanus is up-to-date. Review of Systems: Review of Systems: Constitutional: Denies fever or chills. [] Eyes: Denies change in visual acuity. [] HENT: Denies nasal congestion or sore throat. [] Respiratory: Denies cough or shortness of breath. [] Cardiovascular: Denies chest pain or edema. [] GI: Denies nausea, vomiting, Musculoskeletal: Denies back pain or joint pain. [] Integument: Denies brisk bleeding or diaphoresis Neurologic: Denies headache or neck pain, Heart Score: C/O Chest Pain: No Risk Factors: Risk Factors: DM, Current or recent (<one month) smoker, HTN, HLP, family history of CAD, obesity. Risk Scores: Score 0 - 3: 2.5% MACE over next 6 weeks - Discharge Home Score 4 - 6: 20.3% MACE over next 6 weeks - Admit for Clinical Observation Score 7 - 10: 72.7% MACE over next 6 weeks - Early Invasive Strategies Current Medications: Current Medications Medications (Trade) Dose Ordered Sig/Ju Start Time Stop Time Status Last Admin Dose Admin Lidocaine HCl (Xylocaine-Mpf 1% 5ml Vial) 5 ml 1X ONCE 04/30/21 01:45 04/30/21 01:47 DC Neomycin/ Polymyxin/ Bacitracin (Triple Antibiotic Ointment) 1 pkt 1X ONCE 04/30/21 01:30 04/30/21 01:31 DC Allergies: Allergies: Allergies Coded Allergies Type Severity Reaction Last Updated Verified Penicillins Allergy Intermediate RASH, MOUTH SWELLING 01/08/19 Yes hydrocodone Allergy Intermediate ITCHING ALL OVER,JUST HAPPENED (NEW RX) 11/06/20 Yes Physical Exam: PE: Constitutional: no acute distress, non-toxic appearance. HENT: Normocephalic, atraumatic, Eyes: EOMI, conjunctiva normal, no discharge. Neck: Normal range of motion, supple, Cardiovascular: S1/2 present, regular rhythm Lungs & Thorax: Speaking in full sentences, bilateral equal chest rise, no tachypnea or increased work of breathing Skin: Warm, dry, 3 cm V-shaped avulsion flap over mid right dorsal forearm-blue tissue of distal skin flap, Neurologic: Alert and oriented X 3, median/radial/ulnar nerve sensation intact, MSK: normal range of motion of right upper extremity, no joint deformity VASC: No active bleeding, right radial pulse intact, cap refill less than 1 second, normal skin turgor Psychologic: Affect normal, comedic mood EKG: EKG: [] Radiology/Procedures: Radiology/Procedures: Indication: Right forearm laceration Procedure: The patient was placed in the appropriate position and anesthesia around the right forearm laceration 1% lidocaine. The area was then copiously irrigated. No foreign body identified. The laceration was closed with 4-0 nyl on, total of 3 sutures. The wound area was then dressed with antibiotic ointment and sterile dressings. Total repaired wound length: 3 cm. Other Items: None The patient tolerated the procedure . Complications: None. pt states " I don't care if I scar, can you hurry, family is waiting in car outside" IMAGING REPORT Signed PATIENT: DEYA RODRIGUEZ ACCOUNT: [id number] : 1980 LOCATION: ER AGE: 40 SEX: M EXAM STATUS: DEP ER ORD. PHYSICIAN: ISABEL CORDOBA DO REASON: right forearm lac PROCEDURE: FOREARM RIGHT Right forearm 2 views: Reason for examination: Laceration. No acute fracture or dislocation is seen. The bone density is normal. No abnormal periosteal reaction is seen. Wrist and elbow joints show no abnormalities. Soft tissue injury is evident distally. IMPRESSION: No acute bony abnormality in the right forearm. Soft tissue injury evident distally. Electronically signed by: Laurita Ann MD (04/30/2021 4:13 AM) [facility] DICTATED and SIGNED BY: LAURITA ANN MD DATE: 04/30/21 [id number] 0 Course & Med Decision Making: Course & Med Decision Making Pertinent Labs and Imaging studies reviewed. (See chart for details) Concern for accidental skin avulsion laceration status post repair. Tetanus updated. Wound care instructions given. Suture removal in 7 to 10 days. Will discharge home with strict ED return precautions were given for rash, infection, fever, severe pain or neurologic deficits. Encouraged urgent outpatient follow- up with PMD and wound care. Life-threatening processes were considered but are low suspicion at this time, given history, physical exam and ED workup. Pt was educated on all prescription medications and adverse effects. All patient's questions were answered and pt was stable at time of discharge. Life/limb-threatening differential includes but is not limited to, trauma (fracture, dislocation, laceration, compartment syndrome, tendon or ligament injury), neurovascular injury or deficitcva/tia, infection (osteomyelitis, abscess, cellulitis, septic arthritis, necrotizing fasciitis), deep vein thrombosis, renal/cardiac/liver disease, medication adverse effect, lymphedema/anasarca, vascular insufficiency or malignancy, I spoken with the patient and her caregivers. I explained the patient's condition, diagnoses and treatment plan based on the information available to me at this time. I have answered the patient and her caregiver's questions and addressed any concerns. The patient and her caregivers have a good understanding of patient's diagnosis, condition and treatment plan as can be expected at this point. Vital signs have been stable. Patient's condition is stable and appropriate for discharge from the emergency department. Patient will pursue further outpatient evaluation with primary care physician or other designated or consulting physician as outlined in the discharge instructions. The patient and/or caregivers are agreeable to this plan of care and follow-up instructions have been explained in detail. The patient and/or caregivers have received these instructions in written form and have expressed an understanding of the discharge instructions. The patient and/or caregivers are aware that any significant change of condition or worsening of symptoms should prompt immediate return to this or the closest emergency department or call to 911. Castillo Disclaimer: Castillo Disclaimer: This electronic medical record was generated, in whole or in part, using a voice recognition dictation system. 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 We trust that you had a positive experience in our Emergency Department. If you wish to speak to the department management, you may call the Director at [phone]. YOUR FOLLOW UP INSTRUCTIONS ARE FOLLOWS: 1. Do you have a private Doctor? If you do not have a private doctor, please ask for a resource list of physicians or clinics that may be able to assist you with follow up care. 2. The Emergency Physicain has interpreted your x-rays. The X-Ray specialist will also review them. If there is a change in the findings, you will be notified in 48 hours when at all possible. 3. A lab test or culture has been done, your results will be reviewed and you will be notified if you need a change in treatment. ADDITIONAL INSTRUCTIONS AND INFORMATION: 1. Your care today has been supervised by a physician who is specially trained in emergency care. Many problems require more than one evaluation for a complete diagnosis and treatment. We recommend that you schedule your follow up appointment as recommended to ensure complete treatment of you illness or injury. If you are unable to obtain follow up care and continue to have a problem, or if your condition worsens, we recommend that you return to the ED. 2. We are not able to safely determine your condition over the phone nor are we able to give sound medical advice over the phone. For these safety reasons, if you call for medical advice we will ask you to come to the ED for further evaluation. 3. If you have any questions regarding these discharge instructions please call the ED at [phone]. SAFETY INFORMATION: In the interest of safety, wellness, and injury prevention; we encourage you to wear your sealbelt, if you smoke; quite smoking, and we encourage family to use a protective helmet for bicycling and other sporting events that present an increased risk for head injury. IF YOUR SYMPTOMS WORSEN OR NEW SYMPTOMS DEVELOP, OR YOU HAVE CONCERNS ABOUT YOUR CONDITION; OR IF YOUR CONDITION WORSENS WHILE YOU ARE WAITING FOR YOUR FOLLOW UP APPOINTMENT; EITHER CONTACT YOUR PRIMARY CARE DOCTOR, THE PHYSICIAN WHOSE NAME AND NUMBER YOU WERE GIVEN, OR RETURN TO THE ED IMMEDIATELY. Scripts Neomycn/Baci Zn/Pmyx Bs/Pramox (NEOSPORIN + PAIN RELIEF OINT) 28.3 Gm Oint...g. 28.3 GM TP TID PRN for PAIN, #1 [facility] Prov: ISABEL CORDOBA DO 04/30/21 ISABEL CORDOBA DO Apr 30, 2021 02:55
--- NOTE | 2021-04-30 04:16 | RAD ---
Right forearm 2 views: Reason for examination: Laceration. No acute fracture or dislocation is seen. The bone density is normal. No abnormal periosteal reaction is seen. Wrist and elbow joints show no abnormalities. Soft tissue injury is evident distally. IMPRESSION: No acute bony abnormality in the right forearm. Soft tissue injury evident distally. Electronically signed by: Tiffany Gramajo MD (04/30/2021 4:13 AM) [facility]
== END 2021-04-30 03:10 | disposition home or self-care (01) ==
LOC: ER 01:13
DX: S51.811A Laceration without foreign body of right forearm, initial encounter (principal); G56.21 Lesion of ulnar nerve, right upper limb; F17.200 Nicotine dependence, unspecified, uncomplicated; Z88.0 Allergy status to penicillin; Z88.5 Allergy status to narcotic agent; W26.8XXA Contact with other sharp object(s), not elsewhere classified, initial encounter; Y93.89 Activity, other specified; Y92.89 Other specified places as the place of occurrence of the external cause; Y99.8 Other external cause status
CPT/HCPCS: 12002; 73090; 99283